=== PATIENT | male | born 1970 ===

== ENCOUNTER 2020-03-19 09:47 | Day surgery (SDC) | payer OTHER ==
[~2020-03-19 09:47] MED LIST: IBERSARTAN PO
== END 2020-03-19 19:40 | disposition home or self-care (01) ==
LOC: CIR.AMB 09:47
PROVIDERS: ATTEND Colon & Rectal Surgery
DX: K62.0 Anal polyp (principal); K64.8 Other hemorrhoids; K64.4 Residual hemorrhoidal skin tags; Z20.828 Contact with and (suspected) exposure to other viral communicable diseases